=== PATIENT | male | born 1955 | race Caucasian/White ===

== ENCOUNTER 2016-11-01 07:10 | Emergency (ER) | payer OTHER, BC ==
[~2016-11-01] VITALS: Ht 172.7 cm; Wt 105.0 kg
[2016-11-01 07:17] VITALS: Ht 172.7 cm; Wt 105.0 kg
[2016-11-01 07:39] LABS: HEMATOCRIT 40.5 % (42-52); MEAN CELL VOLUME 88.6 fL (80-100); MEAN CORPUSCULAR HEMOGLOBIN 29.8 pg (25-34); MEAN CORPUSCULAR HGB CONC 33.6 g/dl (32-36); MEAN PLATELET VOLUME 8.9 fL (7.4-10.4); PLATELET COUNT 253 K/uL (130-400); RED BLOOD COUNT 4.57 M/uL (4.7-6.1); WHITE BLOOD COUNT 8.22 K/uL (4.8-10.8)
[2016-11-01 07:55] LABS: BUN/CREATININE RATIO 14.6 (10-20); CALCIUM 9.4 mg/dl (8.5-10.1); CREATININE 1.3 mg/dl (0.60-1.40); POTASSIUM 4.2 mmol/L (3.5-5.1)
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
[2016-11-01] MEDS ORDERED: XYLOCAINE 1%/SOD BICARB 20 ML VIAL INFIL ONE (08:19)
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
[2016-11-01] MEDS ORDERED: ONDANSETRON INJ 2 MG/ML 2 ML VIAL IV STA (09:08)
[2016-11-01] MEDS ORDERED: ASPI-435 PO (10:52)
[2016-11-01] MEDS ORDERED: CHOL2000 PO (10:52)
[2016-11-01] MEDS ORDERED: CYAN10005 PO (10:52)
[2016-11-01] MEDS ORDERED: ASPI-461 (10:52)
[2016-11-01] MEDS ORDERED: CALC-51 PO (10:52)
[2016-11-01] MEDS ORDERED: METF-384 PO (10:52)
[2016-11-01] MEDS ORDERED: FENO48TA9 PO (10:52)
[2016-11-01] MEDS ORDERED: CLR/5 PO (10:52)
[2016-11-01] MEDS ORDERED: OMEG10007 PO (10:52)
[2016-11-01] MEDS ORDERED: MULT-506 PO (10:52)
[2016-11-01] MEDS ORDERED: METO-551 PO (10:52)
[2016-11-01] MEDS ORDERED: LEVO137T3 PO (10:52)
[2016-11-01] MEDS ORDERED: LIRA18IN SQ (11:03)
[2016-11-01 11:37] LABS: URINE APPEARANCE CLEAR (CLEAR); URINE BILIRUBIN NEG (NEG); URINE COLOR DK YELLOW; URINE EPITHELIAL CELL AUTO >30 /lpf (0-5); URINE NITRITE NEG (NEG); URINE SPECIFIC GRAVITY 1.028 (1.000-1.030); UROBILINOGEN NEG (NEG); ZZUR CULT IF INDIC CLEAN CATCH YES
[2016-11-01 11:41] LABS: MANUAL MICROSCOPIC REQUIRED? NO; REVIEW REQ? YES
[2016-11-01 11:58] LABS: URINE PATH CASTS 1-5 GRANULAR CASTS /lpf (0)
[2016-11-01] MEDS ORDERED: HYDROCODONE/ACETAMOPHEN 5/325MG TAB PO ONE (13:00)
[2016-11-01] MEDS ORDERED: SULF800T23 PO (13:06)
[2016-11-01] MEDS ORDERED: HYDR-5688 PO (13:06)
[2016-11-01 14:18] VITALS: BP 125/72; PULSE 96; TEMP 36.4; O2SAT 96
--- NOTE | 2016-11-01 17:27 | EMERGENCY ROOM VISIT NOTE ---
ED Visit Note I was asked by Dr. Katz to repair multiple complex lacerations. A 4 cm laceration to the temporal area and ear that extended to the tragus was repaired.Using sterile technique the wound was cleaned with Betadine. The area was sterilely draped. 2 ml of 1% buffered lidocaine was used to anesthetize the skin. Once the patient was numb, the wound was copiously irrigated under pressure with sterile saline. The wound was explored and there were no deep structures such as tendons, bone, or ligaments present. The laceration was repaired using 9 simple interrupted 6-0 nylon sutures with the wound edges being well approximated. The patient tolerated the procedure well. The bleeding stopped. A 6 cm irregular and stellate laceration to the right scalp was repaired.Using sterile technique the wound was cleaned with Betadine. The area was sterilely draped. 3 ml of 1% buffered lidocaine was used to anesthetize the scalp. Once the patient was numb, the wound was copiously irrigated under pressure with sterile saline. The wound was explored and there were no deep structures such as tendons, bone, or ligaments present. Several pieces of glass were removed and wound. The laceration was repaired using 1 pursestrings 6-0 nylon sutures and 6 brook with the wound edges being well approximated. The patient tolerated the procedure well. The bleeding stopped. Several additional abrasions on the scalp were cleaned and pieces of glass were removed. A large complex 3-1/2 cm laceration to the nasolabial angle and into the nares was repaired.Using sterile technique the wound was cleaned with Betadine. The area was sterilely draped. 4 ml of 1% buffered lidocaine was used to anesthetize the skin. Once the patient was numb, the wound was copiously irrigated under pressure with sterile saline. The wound was explored and the cartilage was visible in the base of the wound. The laceration was repaired using 7 simple interrupted 6-0 nylon sutures with the wound edges being well approximated. The patient tolerated the procedure well. The bleeding stopped. Lastly, an irregular laceration to the right upper eyelid at the area of the lid margin was repaired. This was approximately 2 cm in length.Using sterile technique the wound was cleaned with Betadine. The area was sterilely draped. 1 ml of 1% buffered lidocaine was used to anesthetize the upper eyelid and. Once the patient was numb, the wound was copiously irrigated under pressure with sterile saline. The wound was explored and there were no deep structures such as tendons, bone, or ligaments present. The laceration was repaired using a running suture using 8-0 nylon With the wound edges being well approximated. The patient tolerated the procedure well. The bleeding stopped. Additionally, the patient has a vertical laceration through the mid upper eyelid that does cross through the lid margin. Both the horizontal and vertical lacerations are fairly complex. I considered that the patient may need to see oculoplastic surgery. I did ask Dr. Katz to evaluate these lacerations. He felt that the upper eyelid was well approximated with sutures. He felt that the vertical laceration through the upper eyelid seemed to be well approximated without sutures and felt it would do well without further evaluation or intervention.
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
== END 2016-11-01 14:19 | disposition home or self-care (01) ==
LOC: C.EDA 07:18
DX: S01.82XA Laceration with foreign body of other part of head, initial encounter (principal); N39.0 Urinary tract infection, site not specified; V47.5XXA Car driver injured in collision with fixed or stationary object in traffic accident, initial encounter; E11.9 Type 2 diabetes mellitus without complications; I10 Essential (primary) hypertension; I51.9 Heart disease, unspecified; Z79.82 Long term (current) use of aspirin